=== PATIENT | female | born 1990 | race Caucasian/White ===

== ENCOUNTER 2023-05-08 07:44 | Inpatient (IN) ==
[2023-05-08] MEDS ORDERED: OXYTOCIN 30 UNITS/500 ML BAG IV PRN ×3 (07:54→23:40)
[2023-05-08] MEDS ORDERED: LIDOCAINE 1% LOCAL 20 ML VIAL INFIL PRN (07:54)
[2023-05-08] MEDS ORDERED: VANCOMYCIN HCL 1,000 MG in SODIUM CHLORIDE 0.9% 250 ML IV STA (07:59)
[2023-05-08 08:35] LABS: Hemoglobin 11.9 g/dl (12.0-16.0); Mean Corpuscular Hemoglobin 28.3 pg (25.0-34.0); Mean Corpuscular Volume 83.1 fL (80.0-100.0); Mean Platelet Volume 10.8 fL (9.4-12.4); Platelet Count 194 K/uL (130-400); RDW Coefficient of Variation 12.9 % (11.5-14.5); RDW Standard Deviation 38.7 fL (36.4-46.3); Red Blood Count 4.21 M/uL (4.20-5.40); White Blood Count 7.59 K/ul (4.8-10.8)
[2023-05-08] MEDS ORDERED: ceFAZolin 2000MG 2,000 MG/15 ML SYR IV STA (08:36)
[2023-05-08] MEDS: LACTATED RINGER'S 1,000 ML IV PRN ×4 (09:17→22:10)
[2023-05-08] MEDS ORDERED: fentaNYL citrate PF 100 MCG/2 ML VIAL ONE (12:02)
[2023-05-08] MEDS ORDERED: SODIUM CHLORIDE 0.9% PF INJ 10 ML VIAL ONE (12:03)
[2023-05-08] MEDS ORDERED: BUPIVACAINE 0.25% PF 30 ML VIAL ONE (12:03)
[2023-05-08] MEDS ORDERED: LIDOCAINE 2%/EPINEPHRINE 1:200,000 20 ML PF ONE (12:03)
[2023-05-08] MEDS ORDERED: ePHEDrine sulfate 50 MG/ML AMP ONE (12:03)
[2023-05-08] MEDS ORDERED: fentaNYL 2MCG/ML ROPIVACAINE 1.25MG/ML 100 ML BAG EPI ONE (12:04)
[2023-05-08] MEDS ORDERED: BUPIVACAINE 0.25% PF 30 ML VIAL EPI PRN (12:26)
[2023-05-08] MEDS ORDERED: ONDANSETRON INJ 2 MG/ML 2 ML VIAL IV PRN (12:26)
[2023-05-08] MEDS ORDERED: SODIUM CHLORIDE 0.9% PF INJ 10 ML VIAL EPI STA (12:26)
[2023-05-08] MEDS ORDERED: ROPIVACAINE 0.5% PF 5 MG/ML 20 ML VIAL EPI PRN (12:26)
[2023-05-08] MEDS ORDERED: fentaNYL citrate PF 100 MCG/2 ML VIAL EPI PRN (12:26)
[2023-05-08] MEDS ORDERED: NALOXONE HCL 1 MG in SODIUM CHLORIDE 0.9% 1000ML 1,000 ML IV PRN (12:26)
[2023-05-08] MEDS ORDERED: LIDOCAINE 2%/EPINEPHRINE 1:200,000 20 ML PF EPI STA (12:26)
[2023-05-08] MEDS ORDERED: NALBUPHINE HCL INJ 10 MG/ML AMP IV PRN (12:26)
[2023-05-08] MEDS ORDERED: BUPIVACAINE 0.25% PF 30 ML VIAL EPI STA (12:26)
[2023-05-08] MEDS ORDERED: fentaNYL 2MCG/ML ROPIVACAINE 1.25MG/ML 100 ML BAG EPI PRN (12:26)
[2023-05-08] MEDS ORDERED: LIDOCAINE 2% MPF LOCAL 5 ML VIAL EPI PRN (12:26)
[2023-05-08] MEDS ORDERED: diphenhydrAMINE 50 MG/ML VIAL IV PRN (12:26)
[2023-05-08] MEDS ORDERED: SODIUM CHLORIDE 0.9% PF INJ 10 ML VIAL EPI PRN (12:26)
[2023-05-08] MEDS ORDERED: ePHEDrine sulfate 50 MG/ML AMP IV PRN (12:26)
[2023-05-08] MEDS ORDERED: fentaNYL citrate PF 100 MCG/2 ML VIAL EPI STA (12:26)
[2023-05-08] MEDS ORDERED: NALOXONE HCL 0.4 MG/1 ML VIAL/CARP IV PRN (12:26)
--- NOTE | 2023-05-08 12:28 | Anesthesiology Consultation ---
Date of Service May 08, 2023 Assessment & Plan Chart Review Chart Review: Patient NOT seen in Pre Admission Testing and Acceptable Risk for Labor Epidural Consults Requested none ASA ASA2 Proposed Anesthesia Anesthesia Type: Labor Epidural Risk / Benefits Reviewed With: PT / POA / Parent / Guardian, Accepts Plan and Informed Consent Obtained History Height/Weight Height: 5 ft 6 in Weight: 94.801 kg Allergies Allergy/AdvReac Type Severity Reaction Status Date / Time Penicillins Allergy swelling Verified 05/07/23 09:48 Medications Home Medications Medication Instructions Recorded Confirmed Last Taken prenat.vits,nikki,set-[id number]-[id number] 1 tab PO DAILY 09/25/22 05/07/23 Unknown breast pump #1 ea 04/23/23 05/07/23 Unknown Active Medications Generic Name Dose Route Start Last Admin Trade Name Freq PRN Reason Stop Dose Admin Lactated Ringer's 1,000 mls @ 125 mls/hr 05/08/23 07:54 05/08/23 09:17 Lr IV 05/10/23 07:53 125 mls/hr .Q8H PRN Administration L&D Protocol Protocol Oxytocin 30 units in 500 mls @ 4 mls/hr 05/08/23 08:35 05/08/23 09:50 Pitocin IV 05/10/23 08:34 0.24 units/hr .Q24H PRN 4 mls/hr Labor Induction/Augmentation Titration Protocol 0.24 UNITS/HR Past Medical History Medical History External hemorrhoids Ulcer Urinary tract infection Varicella vaccination Exercise / Class Metabolic Activity II 4-5 Yardwork/Stairs/Walk up hill Past Family History Family History Aunt Breast cancer Denies family history of Ovarian cancer Prostate cancer Myocardial infarction Colorectal cancer Uterine cancer Past Surgical History Surgical History H/O wisdom tooth extraction History of lumpectomy of right breast 2016, benign Past Anesthesia History No Hx of Anesthesia Complications and No Family Hx of Anesthesia Complications History of PONV No Hx of PONV and No Hx of Motion Sickness Social History Smoking Status: Never smoker Do You Dip or Chew Tobacco: No Hx Alcohol Use: No Hx Substance Use: No Physical Exam Vital Signs Last Vital Signs Temp 37.2 C 05/08/23 08:02 Pulse 65 05/08/23 12:24 Resp 20 05/08/23 10:29 BP 135/73 05/08/23 12:24 ENMT Mouth: no dentition abnormality Thyromental Distance: > or= 3.5 Finger Breadths Mallampati Class: II Neck normal visual inspection Respiratory normal respiratory effort Auscultation: lungs clear to auscultation bilaterally Cardiovascular Rate/Rhythm: regular rate and regular rhythm Psychiatric Orientation: alert Testing Laboratory Results 05/08/23 08:08
[2023-05-08] MEDS ORDERED: ceFAZolin 1000MG 1,000 MG/7.5 ML SYR IV PRN (15:29)
--- NOTE | 2023-05-08 16:51 | History & Physical Report ---
Date of Service May 08, 2023 Assessment & Plan (1) with 39 completed weeks gestation: (2) GBS (group B Streptococcus carrier), +RV culture, currently : Plan Will admit patient to L&D for IOL VSS FHT category 1 GBS positive; will treat with Ancef due to Hx of Penicillin allergy Induction with Pitocin Epidural prn Admission and Anticipated Discharge Date Admission Date: May 08, 2023 History of Present Illness Chief Complaint: Induction of Labor Primary Care Provider: Christina Corral MD Anahi is a 33 y/o female G1 currently at IUP 39 5/7 WGA with an DEONNA 05/10/2023 as determined by certain LMP is for IOLdue tp dilated umbilical vein. Her was without complications. Refers good movement Denies contractions Denies fluid loss Denies bloody show External FHT and external uterine monitors used * Category 1 tracing * Moderate FHT variability. Had regular appointments since her first trimester. Allergies Allergy/AdvReac Type Severity Reaction Status Date / Time Penicillins Allergy swelling Verified 05/07/23 09:48 Home Medications Medication Instructions Recorded Confirmed Type prenat.vits,nikki,psh-moso-uccrn 1 tab PO DAILY 09/25/22 05/08/23 History breast pump #1 ea 04/23/23 05/07/23 Rx Patient History Medical History (Updated 05/08/23 @ 17:22 by Kacie Wade MD) External hemorrhoids Ulcer Urinary tract infection Varicella vaccination Velamentous insertion of umbilical cord Surgical History H/O wisdom tooth extraction History of lumpectomy of right breast 2016, benign Family History Aunt Breast cancer Denies family history of Ovarian cancer Prostate cancer Myocardial infarction Colorectal cancer Uterine cancer Social History (Updated 05/08/23 @ 08:02 by Bisi Sullivan, RN) Smoking Status: Never smoker Second Hand Exposure: No; Do You Dip or Chew Tobacco: No; Hx Alcohol Use: No Hx Substance Use: No Preferred Language: Divehi Communication Ability: Effective Human Resources Specialist Required: No Beliefs That Will Affect Care: None marital status: marital status details: Lito Solorzano (32) [phone] Current Living Situation: Spouse Current Living Situation Comment: lives with spouse, 2 dogs current occupational status: employed 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 Denies shortness of breath or respiratory difficulty. no chest pain and no palpitations no dysuria no headache(s) Physical Exam Physical Exam: General: Alert, oriented x3. Afebrile. No acute distress. Eyes: Pupils equal and reactive to light bilaterally. Extraocular movement intact bilaterally. Cardiac: Regular rate and rhythm, no murmurs/rubs/gallops. Respiratory: Clear to auscultation bilaterally a/p, no wheezes/rales/rhonchi. No increased work of breathing. Symmetrical chest rise. No respiratory distress. Abdomen: Gravid; FHR 130-135 bpm; Position: Cephalic Pelvic: Dilation 2cm; Effacement 50%; Station -[address] Manuel Lower Extremities: No lower extremity edema or swelling. No deep calf pain. H kennedy's negative bilaterally Results & Data Vital Signs (Past 12 Hours) Vital Signs Temp Pulse Resp BP Pulse Ox 05/08/23 08:02 37.2 C 20 05/08/23 16:46 73 95 05/08/23 16:47 74 94 05/08/23 16:41 77 96 05/08/23 16:40 74 94 05/08/23 16:36 81 95 05/08/23 16:35 65 20 128/67 05/08/23 16:31 72 95 05/08/23 16:26 70 95 05/08/23 16:21 97 05/08/23 16:21 72 05/08/23 16:21 67 130/70 05/08/23 16:16 80 95 05/08/23 16:11 73 96 05/08/23 16:06 63 95 05/08/23 16:05 71 117/66 08/03/23 16:01 73 95 05/08/23 15:56 73 96 05/08/23 15:51 79 96 05/08/23 15:50 64 113/65 05/08/23 15:49 72 94 05/08/23 15:46 75 95 05/08/23 15:41 74 95 05/08/23 15:36 73 96 05/08/23 15:35 74 20 136/65 05/08/23 15:31 78 96 05/08/23 15:26 75 96 05/08/23 15:21 75 97 05/08/23 15:19 37.1 C 80 20 123/66 05/08/23 15:16 71 97 05/08/23 15:11 84 95 05/08/23 15:06 89 96 05/08/23 15:05 73 121/84 05/08/23 15:01 80 96 05/08/23 14:56 78 98 05/08/23 14:51 83 97 05/08/23 14:49 72 05/08/23 14:49 73 133/71 94 05/08/23 14:46 76 96 05/08/23 14:41 69 96 05/08/23 14:36 97 05/08/23 14:36 70 05/08/23 14:36 71 135/73 05/08/23 14:31 75 97 05/08/23 14:26 71 97 05/08/23 14:21 96 05/08/23 14:21 82 05/08/23 14:21 75 122/68 05/08/23 14:16 83 96 05/08/23 14:11 71 97 05/08/23 14:06 76 97 05/08/23 14:02 75 128/61 05/08/23 14:01 80 96 05/08/23 13:57 78 140/66 05/08/23 13:56 81 96 05/08/23 13:51 79 96 05/08/23 13:52 79 16 130/61 05/08/23 13:47 77 136/63 05/08/23 13:46 76 97 05/08/23 13:43 74 125/57 L 05/08/23 13:41 66 96 05/08/23 13:38 67 120/56 L 05/08/23 13:36 72 97 05/08/23 13:33 65 130/59 L 05/08/23 13:31 73 96 05/08/23 13:28 76 20 127/64 05/08/23 13:26 70 97 05/08/23 13:23 67 134/67 05/08/23 13:21 68 97 05/08/23 13:18 70 120/67 05/08/23 13:16 69 96 05/08/23 13:11 73 96 05/08/23 13:12 67 18 131/77 05/08/23 13:07 67 18 128/60 05/08/23 13:06 71 97 05/08/23 13:01 96 05/08/23 13:01 73 05/08/23 13:01 69 18 127/62 05/08/23 12:59 69 18 137/66 05/08/23 12:56 68 97 05/08/23 12:57 68 18 125/65 05/08/23 12:55 77 18 133/62 05/08/23 12:52 73 134/61 05/08/23 12:51 98 05/08/23 12:51 78 05/08/23 12:51 73 18 131/61 05/08/23 12:48 73 140/63 05/08/23 12:46 80 97 05/08/23 12:47 83 18 128/64 05/08/23 12:45 80 18 138/65 05/08/23 12:43 71 18 134/66 05/08/23 12:41 97 05/08/23 12:41 74 05/08/23 12:42 73 148/76 H 05/08/23 12:41 86 148/69 H 05/08/23 12:39 70 142/82 H 05/08/23 12:36 77 100 05/08/23 12:31 87 98 05/08/23 12:24 65 135/73 05/08/23 11:39 72 141/85 H 05/08/23 10:29 80 20 132/82 05/08/23 09:18 86 18 135/80 05/08/23 07:59 78 145/86 H Laboratory Results OB Labs: Blood Type A Positive 10/10/22 Antibody Screen NEGATIVE 10/10/22 Hemoglobin 11.9 g/dl (12.0-16.0) L 05/08/23 Hematocrit 35.0 % (37.0-47.0) L 05/08/23 Mean Corpuscular Volume 83.1 fL (80.0-100.0) 05/08/23 Platelet Count 194 K/uL (130-400) 05/08/23 Rubella IgG Antibody Immune (Immune) 10/10/22 Rapid Plasma Reagin Nonreactive (Nonreactive) 10/10/22 Hepatitis B Surface Antigen. NON-REACTIVE (NON-REACTIVE) 10/10/22 Hepatitis C Antibody (EIA) NON-REACTIVE (NON-REACTIVE) 10/10/22 HIV (1&2) Ag and Ab Confirmation NON-REACTIVE (NON-REACTIVE) 10/10/22 Glucose 1 Hour 50 gm Load 164 mg/dl (70-130) H 02/14/23 Maternal Serum Alpha Fetoprotein 31.0 ng/mL 12/02/22 OB Optional Labs: Chlamydia trachomatis RNA Not Detected (NotDetected) 10/10/22 Neisseria gonorrhoeae RNA Not Detected (NotDetected) 10/10/22 Thyroid Stimulating Hormone (TSH) 2.350 uIu/ml (0.300-4.500) 06/13/22 Alpha Fetoprotein Triple Screen SEE NOTE 12/02/22 Other: * GBS positive Supervising Physician Co-Signing Physician Notes Patient evaluated with the resident and agree with the above findings and plan Resident Activity Tracking Resident Involvement: Resident Care Provided Care Provided: OB Delivery
[2023-05-08] MEDS ORDERED: VANCOMYCIN HCL 1,000 MG in SODIUM CHLORIDE 0.9% 250 ML IV PRN (18:54)
[2023-05-08] MEDS ORDERED: NURSING L&D Epidural Breakthrough Pain Update ONE (20:53)
[2023-05-08] MEDS ORDERED: BENZOCAINE 20% SPRY 85 APPLN/85 GM CAN EXT PRN (23:40)
[2023-05-08] MEDS ORDERED: ACETAMINOPHEN 325 MG TAB PO PRN (23:40)
[2023-05-08] MEDS ORDERED: HYDROCORTISONE ACETATE 25 MG SUPP PR PRN (23:40)
[2023-05-08] MEDS ORDERED: bisacodyL 10 MG SUPP PR PRN (23:40)
[2023-05-08] MEDS ORDERED: DIPHTHERIA/TETANUS/PERTUSSIS Vaccine (Tdap, Age 7+yrs) 0.5mL SYR/VL IM ONE (23:40)
[2023-05-09] MEDS: IBUPROFEN 600 MG TAB PO PRN ×5 (00:48→20:27)
--- NOTE | 2023-05-09 06:57 | Obstetrical Progress Note ---
Date of Service <Kacie Wade MD - Last Filed: 05/09/23 07:32> May 09, 2023 Assessment & Plan <Kacie Wade MD - Last Filed: 05/09/23 07:32> (1) Spontaneous vaginal delivery: Patient with the above mentioned history and findings was evaluated at bedside and found awake, alert, oriented in all spheres, afebrile, and in no acute distress. Overall, patient is doing well clinically. Therefore, will encourage ambulation as tolerated and will resume regular diet. Will continue monitoring pain levels and management with Motrin PRN. Patient is encouraged to breastfeed. Will continue care. All questions were answered. <Marcellus Manuel MD - Last Filed: 05/09/23 07:54> (1) Spontaneous vaginal delivery: Subjective <Kacie Wade MD - Last Filed: 05/09/23 07:32> Anahi is a 33 y/o female who is now PPD # 1 following at 39 5/7 weeks after IOL due to dilated umbilical cord. Reports feeling well overall this morning. Refers mild abdominal cramping & 4/10 pain well managed on analgesics. Voiding spontaneously. Tolerating meals overnight and able to ambulate some. She has passed gas but has not had a bowel movement yet. Some persistent lochia with some improvement this morning. . Her blood type is A positive with last Hb at 11.9. She denies chest pain, SOB, or symptoms of anemia such as palpitations, lightheadedness, fatigue, headaches, or any other symptom. She is GBS positive treated in labor and rubella immune. Constitutional: no fever, no chills or no sweats Denies shortness of breath or difficulty breathing Cardiovascular: no chest pain or no palpitations Breast: no breast pain Genitourinary (female): no dysuria Neurologic: no headache(s) Denies changes in vision Physical Exam <Kacie Wade MD - Last Filed: 05/09/23 07:32> General: Alert. Oriented to person, time, and place. Afebrile. No acute distress. Eyes: pupils equal and reactive to light bilaterally, extraocular movements intact. Cardiac: Regular rate and rhythm, no murmurs/rubs/gallops. Respiratory: Clear to auscultation bilaterally a/p, no wheezes/rales/rhonchi. No increased work of breathing. Symmetrical chest rise. No respiratory distress. Abdomen: Soft, nontender, nondistended. Bowel sounds present. Uterus: Uterine fundus firm, moderately tender, and palpable at the level of the umbilicus. Lower Extremities: No lower extremity edema or swelling. No deep calf pain. Martell's negative bilaterally. Psych: Euthymic affect. Mood and affect congruence. Regular speech rate and content. Results & Data <Kacie Wade MD - Last Filed: 05/09/23 07:32> Vital Signs (Past 12 Hours) Vital Signs Temp Pulse Pulse Resp BP BP Pulse Ox 05/09/23 02:20 36.7 C 69 22 137/73 99 05/09/23 02:20 05/09/23 01:35 36.9 C 18 05/09/23 01:05 18 05/09/23 00:35 18 05/09/23 00:20 18 05/09/23 00:05 18 05/08/23 23:50 36.8 C 18 05/08/23 23:35 18 05/09/23 01:35 73 128/62 05/09/23 01:20 80 130/60 05/09/23 01:05 90 129/64 05/09/23 00:49 76 136/63 05/09/23 00:34 89 130/61 05/09/23 00:19 80 141/69 H 05/09/23 00:04 88 135/68 05/08/23 23:50 90 143/67 H 05/08/23 23:00 20 05/08/23 23:00 20 05/08/23 22:30 20 05/08/23 22:30 20 05/08/23 23:35 84 145/68 H 05/08/23 23:20 98 H 149/72 H 05/08/23 23:06 92 H 97 05/08/23 23:05 148 H 145/70 H 05/08/23 23:03 107 H 87 L 05/08/23 23:01 105 H 97 05/08/23 22:56 100 H 96 05/08/23 22:52 87 93 05/08/23 22:51 90 95 05/08/23 22:46 112 H 96 05/08/23 22:41 110 H 97 05/08/23 22:36 94 08/03/23 22:36 87 05/08/23 22:36 103 H 93 05/08/23 22:35 85 146/92 H 05/08/23 22:31 80 96 05/08/23 22:26 82 96 05/08/23 22:21 102 H 97 05/08/23 22:20 84 152/79 H 05/08/23 22:16 79 97 05/08/23 22:11 108 H 97 05/08/23 22:06 98 05/08/23 22:06 115 H 05/08/23 22:06 93 H 166/85 H 05/08/23 22:01 92 H 99 05/08/23 21:56 81 99 05/08/23 21:51 82 99 05/08/23 21:50 84 154/86 H 05/08/23 21:46 89 97 05/08/23 21:41 105 H 96 05/08/23 21:36 93 H 142/90 H 99 05/08/23 21:31 81 98 05/08/23 21:26 84 97 05/08/23 21:21 85 97 05/08/23 21:20 79 94 05/08/23 21:19 74 139/80 05/08/23 21:16 88 95 05/08/23 21:00 18 05/08/23 21:00 37.2 C 18 05/08/23 21:11 78 96 05/08/23 21:06 82 143/84 H 97 05/08/23 21:01 88 96 05/08/23 20:56 81 97 05/08/23 20:51 96 05/08/23 20:51 79 05/08/23 20:51 79 156/98 H 05/08/23 20:46 86 97 05/08/23 20:41 94 H 96 05/08/23 20:36 97 05/08/23 20:36 77 05/08/23 20:36 74 144/80 H 05/08/23 20:30 18 05/08/23 20:30 18 05/08/23 20:31 81 96 05/08/23 20:26 71 97 05/08/23 20:21 75 147/79 H 96 05/08/23 20:00 18 05/08/23 20:00 18 05/08/23 20:16 81 97 05/08/23 20:11 61 96 05/08/23 20:06 73 96 05/08/23 20:05 76 138/78 05/08/23 20:01 71 96 05/08/23 19:56 74 96 05/08/23 19:51 81 96 05/08/23 19:50 70 153/104 H 05/08/23 19:46 73 96 05/08/23 19:41 61 95 05/08/23 19:36 69 96 05/08/23 19:30 18 05/08/23 19:30 18 05/08/23 19:35 77 137/62 05/08/23 19:31 62 96 05/08/23 19:26 67 96 05/08/23 19:21 62 96 05/08/23 19:20 67 128/66 05/08/23 19:16 71 96 05/08/23 19:00 18 05/08/23 19:00 37.4 C 18 05/08/23 19:11 70 97 05/08/23 19:06 73 96 05/08/23 19:05 70 140/85 05/08/23 19:01 72 96 05/08/23 18:56 66 97 O2 Del Method 05/09/23 02:20 Room Air 05/09/23 02:20 Room Air 05/09/23 01:35 05/09/23 01:05 05/09/23 00:35 05/09/23 00:20 05/09/23 00:05 05/08/23 23:50 05/08/23 23:35 05/09/23 01:35 05/09/23 01:20 05/09/23 01:05 05/09/23 00:49 05/09/23 00:34 05/09/23 00:19 05/09/23 00:04 05/08/23 23:50 05/08/23 23:00 05/08/23 23:00 05/08/23 22:30 05/08/23 22:30 05/08/23 23:35 05/08/23 23:20 05/08/23 23:06 05/08/23 23:05 05/08/23 23:03 05/08/23 23:01 05/08/23 22:56 05/08/23 22:52 05/08/23 22:51 05/08/23 22:46 05/08/23 22:41 05/08/23 22:36 05/08/23 22:36 05/08/23 22:36 05/08/23 22:35 05/08/23 22:31 05/08/23 22:26 05/08/23 22:21 05/08/23 22:20 05/08/23 22:16 05/08/23 22:11 05/08/23 22:06 05/08/23 22:06 05/08/23 22:06 05/08/23 22:01 05/08/23 21:56 05/08/23 21:51 05/08/23 21:50 05/08/23 21:46 05/08/23 21:41 05/08/23 21:36 05/08/23 21:31 05/08/23 21:26 05/08/23 21:21 05/08/23 21:20 05/08/23 21:19 05/08/23 21:16 05/08/23 21:00 05/08/23 21:00 05/08/23 21:11 05/08/23 21:06 05/08/23 21:01 05/08/23 20:56 05/08/23 20:51 05/08/23 20:51 05/08/23 20:51 05/08/23 20:46 05/08/23 20:41 05/08/23 20:36 05/08/23 20:36 05/08/23 20:36 05/08/23 20:30 05/08/23 20:30 05/08/23 20:31 05/08/23 20:26 05/08/23 20:21 05/08/23 20:00 05/08/23 20:00 05/08/23 20:16 05/08/23 20:11 05/08/23 20:06 05/08/23 20:05 05/08/23 20:01 05/08/23 19:56 05/08/23 19:51 05/08/23 19:50 05/08/23 19:46 05/08/23 19:41 05/08/23 19:36 05/08/23 19:30 05/08/23 19:30 05/08/23 19:35 05/08/23 19:31 05/08/23 19:26 05/08/23 19:21 05/08/23 19:20 05/08/23 19:16 05/08/23 19:00 05/08/23 19:00 05/08/23 19:11 05/08/23 19:06 05/08/23 19:05 05/08/23 19:01 05/08/23 18:56 <Marcellus Manuel MD - Last Filed: 05/09/23 07:54> Co-Signing Physician Notes Patient seen with resident and agree with the above findings and plan. Routine care Resident Activity Tracking <Kacie Wade MD - Last Filed: 05/09/23 07:32> Resident Involvement: Resident Care Provided Care Provided: OB Delivery
--- NOTE | 2023-05-09 08:05 | Delivery Summary ---
Vaginal Delivery Summary Date of Service May 09, 2023 [facility] Vaginal Delivery Charge Procedure Intrapartal events: None Delivery augmentation: rupture of membranes and pitocin Delivery monitor: external FHT and external uterine Route of delivery: Episiotomy description: None Laceration description: Perineal - 2nd Degree Delivery repair: vicryl Estimated blood loss (mL): 300 Anesthesia type: Epidural Narrative: Patient progressed to 10 cm dilated 100% effaced +2 station pushed over an intact perineum with epidural anesthesia and delivered a viable with weight and Apgars pending. Had the delivered in RAMOS position rest of the left transverse. No nuchal cord was noted. Body and shoulders quickly followed. delivered with good tone but without spontaneous cry. Stimulation noticed some grimacing and the cord was doubly clamped and cut. In a taken over to the waiting nursery staff for further evaluation. Cord blood and cord segment obtained. Attention was then turned to delivery of the placenta which delivered intact three-vessel cord with gentle cord traction. On inspection of the perineum vagina and cervix was noted to be second-degree perineal laceration which was repaired with 3-0 Vicryl in traditional crown stitch. Needle sponge and instrument counts were correct at the completion of the case. Both mother and stable in the immediate postdelivery. Labor Stage Duration Labor - Stage 1 Duration: 9.35 Labor - Stage 2 Duration: 1.56 Labor - Stage 3 Duration: 4 Total Length of Labor: 10.98
[2023-05-09] MEDS: PRENATAL VITAMIN 1 TAB PO SCH (08:31)
[2023-05-09] MEDS: FERROUS SULFATE 325 MG TAB PO SCH (08:31)
[2023-05-09] MEDS: DOCUSATE SODIUM 100 MG CAP PO SCH ×2 (08:32→20:28)
--- NOTE | 2023-05-09 11:09 | Anesthesia Procedure Note ---
Date of Service May 09, 2023 Anesthesia Post Epidural Note Vital Signs Vital Signs: Temp Pulse Resp BP Pulse Ox O2 Del Method 36.7 C 69 22 137/73 99 Room Air 05/09/23 02:20 05/09/23 02:20 05/09/23 02:20 05/09/23 02:20 05/09/23 02:20 05/09/23 02:20 Pain Intensity Bilateral Abdomen: Pain Intensity: 6 Perineal: Pain Intensity: 2 Notes Mental Status: alert / awake / arousable and participated in evaluation Patient Amnestic to Procedure: No Nausea / Vomiting: adequately controlled Pain: adequately controlled Airway Patency, RR, SpO2: stable & adequate BP & HR: stable & adequate Hydration State: stable & adequate Neuraxial Anesthesia: was administered and sensory block resolved Anesthetic Complications: no major complications apparent and Pt Satisfied with anesthetic care Epidural: Removed without complications and With tip intact
[2023-05-09] MEDS ORDERED: bisacodyL 5 MG TABEC PO SCH (20:00)
[2023-05-10] MEDS: IBUPROFEN 600 MG TAB PO PRN ×2 (01:57→08:30)
--- NOTE | 2023-05-10 06:46 | Obstetrical Progress Note ---
Date of Service <Kacie Wade MD - Last Filed: 05/10/23 07:51> May 10, 2023 Assessment & Plan <Kacie Wade MD - Last Filed: 05/10/23 07:51> (1) Spontaneous vaginal delivery: Patient with the above mentioned history and findings was evaluated at bedside and found clinically and hemodynamically stable, afebrile, awake, alert, oriented x3, and in no acute distress. Overall she seems stable and is fit to go home today. Discharge instructions were discussed. Her pain will be managed with Tylenol, Advil, Ibuprofen, or Motrin PRN. She is to call to schedule and appointment with her OB for 6 weeks after discharge for her follow up evaluation. All questions were answered. <Chandrika Hayden MD, FACOG - Last Filed: 05/10/23 08:53> (1) Spontaneous vaginal delivery: Subjective <Kacie Wade MD - Last Filed: 05/10/23 07:51> Anahi is a 33 y/o female who is now PPD # 2 following at 39 5/7 weeks after IOL due to dilated umbilical cord. Reports feeling well overall this morning. Refers mild abdominal cramping & 0/10 pain well managed on analgesics. Voiding spontaneously. Tolerating meals overnight and able to ambulate some. She has passed gas but has not had a bowel movement yet. Some persistent lochia with some improvement this morning. . Her blood type is A positive with last Hb at 11.9. She denies chest pain, SOB, or symptoms of anemia such as palpitations, lightheadedness, fatigue, headaches, or any other symptom. She is GBS positive treated in labor and rubella immune. Constitutional: no fever, no chills or no sweats Denies shortness of breath or difficulty breathing Cardiovascular: no chest pain or no palpitations Breast: no breast pain Genitourinary (female): no dysuria Neurologic: no headache(s) Denies changes in vision Physical Exam <Kacie Wade MD - Last Filed: 05/10/23 07:51> General: Alert. Oriented to person, time, and place. Afebrile. No acute distress. Eyes: pupils equal and reactive to light bilaterally, extraocular movements intact. Cardiac: Regular rate and rhythm, no murmurs/rubs/gallops. Respiratory: Clear to auscultation bilaterally a/p, no wheezes/rales/rhonchi. No increased work of breathing. Symmetrical chest rise. No respiratory distress. Abdomen: Soft, nontender, nondistended. Bowel sounds present. Uterus: Uterine fundus firm, non-tender, and palpable below the umbilicus. Lower Extremities: No lower extremity edema or swelling. No deep calf pain. Martell's negative bilaterally. Psych: Euthymic affect. Mood and affect congruence. Regular speech rate and content. Results & Data <Kacie Wade MD - Last Filed: 05/10/23 07:51> Vital Signs (Past 12 Hours) Vital Signs Temp Pulse Resp BP BP Pulse Ox O2 Del Method 05/09/23 23:26 36.8 C 72 20 136/75 98 Room Air 05/09/23 19:58 36.7 C 63 20 136/78 99 Room Air <Chandrika Hayden MD, FACOG - Last Filed: 05/10/23 08:53> Co-Signing Physician Notes Resident Physician Supervision Note: I interviewed and examined the patient. Discussed with Dr. Wade and agree with findings and plan as documented in the note. Any exceptions or clarifications are listed here: Patient had an episode severe abdominal cramping and was found to have urinary retention at 1700 last night. she was able to void 1700cc's of urine after nursing assistance. the post void residual was 1400. She voided again spontaneously for a large amount of urine and the post void residual was then 700cc. she was straight cathed at that point. She was then able to void spontaneously again at midnight with a 200cc residual. This morning she is pain free and no longer having issues with urination. She will be discharged but instructed to call if the severe cramping re-occurs or has not been able to void for over 8 hours. Documented By: Chandrika Hayden MD, FACOG Resident Activity Tracking <Kacie Wade MD - Last Filed: 05/10/23 07:51> Resident Involvement: Resident Care Provided Care Provided: OB Delivery
[2023-05-10] MEDS: PRENATAL VITAMIN 1 TAB PO SCH (08:30)
[2023-05-10] MEDS: FERROUS SULFATE 325 MG TAB PO SCH (08:30)
[2023-05-10] MEDS: DOCUSATE SODIUM 100 MG CAP PO SCH (08:30)
== END 2023-05-10 13:48 | disposition home or self-care (01) | DRG 807 ==
LOC: 4S1 07:44 → 4E2 05-09 02:01

== ENCOUNTER 2025-09-07 11:37 | Inpatient (IN) ==
[2025-09-07] MEDS: ACETAMINOPHEN 500 MG TAB PO PRN (12:38)
[2025-09-07 12:44] LABS: Hematocrit (blood only) 35.5 % (37.0-47.0); Hemoglobin 12.0 g/dL (12.0-16.0); Immature Granulocytes # (auto) 0.03 K/uL (0.01-0.20); Immature Granulocytes % (auto) 0.3 %; Mean Corpuscular Hemoglobin 27.8 pg (25.0-34.0); Mean Corpuscular Volume 82.4 fL (80.0-100.0); Platelet Count 189 K/uL (130-400); RDW Standard Deviation 38.5 fL (36.4-46.3); Red Blood Count 4.31 M/uL (4.20-5.40); White Blood Count 8.88 K/ul (4.8-10.8)
[2025-09-07] MEDS ORDERED: LIDOCAINE 1% LOCAL 20 ML VIAL INFIL PRN (12:52)
[2025-09-07] MEDS ORDERED: OXYTOCIN 30 UNITS/NSS 30 UNITS/500 ML BAG IV PRN ×2 (12:52→21:52)
[2025-09-07 13:04] LABS: Alanine Aminotransferase 12 U/L (7-52); Albumin Globulin Ratio 1.2 (0.9-2); Albumin Level 3.5 gm/dl (3.4-5.0); Alkaline Phosphatase 131 U/L (34-104); Anion Gap 6 (3-11); Bilirubin,Total 0.3 mg/dl (0.2-1.0); Blood Urea Nitrogen 11 mg/dl (6-23); Calcium 9.3 mg/dl (8.6-10.3); Carbon Dioxide 24 mmol/L (21-32); Chloride 106 mmol/L (98-107); Globulin 2.9 gm/dl (2.5-4.0); Glucose 77 mg/dl (70-99(Fasting)); Potassium 4.3 mmol/L (3.5-5.1); Sodium 136 mmol/L (136-145); Total Protein 6.4 gm/dl (6.0-8.3)
[2025-09-07 13:13] LABS: Total Protein Urine Random 4.5 mg/dl (0-11.9)
[2025-09-07 13:18] LABS: Protein Creatinine Ratio Urine 0.3 (0-0.2)
--- NOTE | 2025-09-07 13:49 | History & Physical Report ---
Date of Service September 07, 2025 Assessment & Plan (1) Elderly multigravida: Plan: Preeclampsia labs ordered. Will start induction process. Tylenol for headache and ok to eat before IOL. She is not sure if she has headache d/t not eating? Will continue to monitor BPs - on admission, BPs and blood work normal, however pro/creat ratio 0.3, so if BPs become elevated, this will be a preeclampsia diagnosis. If headache does not resolve with eating/tylenol, and/or if BPs become severe range, may need mag- but not indicated at this time. Admission and Anticipated Discharge Date Admission Date: September 07, 2025 History of Present Illness Chief Complaint: elevated BP, headache Primary Care Provider: Christina Corral MD 35yo @ 38 01/10, sent from office for elevated BPs. Also reporting 01/13 headache, has not yet treated. complicated by AMA and GBS+. Allergies Allergy/AdvReac Type Severity Reaction Status Date / Time Penicillins Allergy swelling Verified 09/07/25 10:26 Home Medications Medication Instructions Recorded Confirmed Type PNV no.[id number] PO 01/19/25 09/07/25 History [ Gummies] breast pump #1 ea 08/24/25 09/07/25 Rx Patient History Medical History (Updated 07/07/25 @ 12:42 by Kanwal Upton) History of HPV infection Anxiety Varicella vaccination External hemorrhoids Ulcer Surgical History H/O wisdom tooth extraction History of lumpectomy of right breast Family History Aunt Breast cancer Denies family history of Ovarian cancer Prostate cancer Myocardial infarction Colorectal cancer Uterine cancer Social History (Updated 01/19/25 @ 13:08 by Debra Corbin) Smoking Status: Never smoker Second Hand Exposure: No; Do You Dip or Chew Tobacco: No; Hx Alcohol Use: No Hx Substance Use: No Preferred Language: Polish Communication Ability: Effective 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 Beliefs That Will Affect Care: None marital status: marital status details: Lito Solorzano (33) [phone] Current Living Situation: Spouse and Family Current Living Situation Comment: lives with spouse, child, 2 dogs current occupational status: employed current occupation: [employer] Feels Safe at Home: Yes Diet: regular Assistive Devices: None Review of Systems All systems reviewed & are unremarkable except as noted in HPI & below Physical Exam Physical Exam: FHT Cat 1 [place] irreg SVE cl/50/-3 Constitutional: WD/WN, vitals as above Respiratory: normal respiratory effort, lungs clear to auscultation no respiratory distress Cardiovascular: Rate/Rhythm: regular rate and regular rhythm Gastrointestinal (Abdomen): Inspection/Auscultation: abdomen normal to inspection Percussion/Palpation: abdomen soft; abdomen nontender Gravid. No s/s chorio or abruption. Skin: no rashes, warm and dry Psychiatric: A+Ox3, euthymic affect Results & Data Vital Signs (Past 12 Hours) Vital Signs Pulse BP 09/07/25 12:37 67 132/84 09/07/25 11:50 68 133/81 Coding Level of Care Code None Diagnoses Elderly multigravida O09.529
[2025-09-07] MEDS: LACTATED RINGER'S 1,000 ML IV PRN (14:02)
[2025-09-07] MEDS: OXYTOCIN 30 UNITS/NSS 30 UNITS/500 ML BAG IV PRN (15:00)
--- NOTE | 2025-09-07 15:14 | Labor Progress Brief Note ---
Date of Service September 07, 2025 Subjective Headache has resolved after eating and 1 dose tylenol. [place] bulb placed without difficulty. 35cc, start pit. Given now elevated BPs, PC ratio 0.3, discussed diagnosis of preeclampsia. Discussed that if BPs become persistently in severe range or if symptomatic, then would become severe range and may need magnesium. Assessment & Plan (1) Preeclampsia: Admission and Anticipated Discharge Date Admission Date: September 07, 2025 Results & Data Vital Signs (Past 12 Hours) Vital Signs Temp Pulse Resp BP 09/07/25 14:38 69 09/07/25 14:38 153/88 H 09/07/25 14:23 69 09/07/25 14:23 152/94 H 09/07/25 14:10 36.6 C 19 09/07/25 13:53 76 161/97 H 09/07/25 13:45 73 161/99 H 09/07/25 12:37 67 132/84 09/07/25 11:50 68 133/81 Coding Level of Care Code None Diagnoses Preeclampsia O14.90
[2025-09-07] MEDS ORDERED: ROPIVACAINE 0.5% PF 5 MG/ML 20 ML VIAL EPI PRN (17:06)
[2025-09-07] MEDS ORDERED: NALOXONE HCL 0.4 MG/1 ML VIAL/CARP IV PRN (17:06)
[2025-09-07] MEDS ORDERED: BUPIVACAINE 0.25% PF 30 ML VIAL EPI PRN (17:06)
[2025-09-07] MEDS ORDERED: NALOXONE HCL 1 MG in SODIUM CHLORIDE 0.9% 1,000 ML IV PRN (17:06)
[2025-09-07] MEDS ORDERED: ONDANSETRON INJ 2 MG/ML 2 ML VIAL IV PRN (17:06)
[2025-09-07] MEDS ORDERED: SODIUM CHLORIDE 0.9% PF INJ 10 ML VIAL EPI PRN (17:06)
[2025-09-07] MEDS ORDERED: diphenhydrAMINE 50 MG/ML VIAL IV PRN (17:06)
[2025-09-07] MEDS ORDERED: NALBUPHINE HCL INJ 10 MG/ML AMP IV PRN (17:06)
[2025-09-07] MEDS ORDERED: LIDOCAINE 2% MPF LOCAL 5 ML VIAL EPI PRN (17:06)
--- NOTE | 2025-09-07 17:06 | Anesthesiology Consultation ---
Date of Service September 07, 2025 Assessment & Plan (1) Encounter for pre-operative examination: Chart Review Chart Review: Patient NOT seen in Pre Admission Testing and Acceptable Risk for Labor Epidural Consults Requested none History Height/Weight Height: 5 ft 5 in Weight: 96.88 kg Allergies Allergy/AdvReac Type Severity Reaction Status Date / Time Penicillins Allergy swelling Verified 09/07/25 10:26 Medications Home Medications Medication Instructions Recorded Confirmed Last Taken PNV no.[id number] PO 01/19/25 09/07/25 Unknown [ Gummies] breast pump #1 ea 08/24/25 09/07/25 Unknown famotidine 20 mg tablet (Pepcid) 20 mg PO DAILY 09/07/25 09/07/25 09/07/25 12:00 sertraline 25 mg tablet (Zoloft) 25 mg PO DAILY 09/07/25 09/07/25 09/06/25 20:00 Active Medications Generic Name Dose Route Start Last Admin Trade Name Freq PRN Reason Stop Dose Admin Acetaminophen 1,000 mg 09/07/25 12:11 09/07/25 12:38 Acetaminophen 500 Mg Tab PO 10/07/25 12:10 1,000 mg Q8H PRN Administration Pain Lactated Ringer's 1,000 mls @ 125 mls/hr 09/07/25 12:52 09/07/25 14:02 Lr IV 09/09/25 12:51 125 mls/hr .Q8H PRN Administration L&D Protocol Protocol Oxytocin 30 units in 500 mls @ 7 mls/hr 09/07/25 13:07 09/07/25 16:30 Pitocin 30 Units/Nss IV 09/09/25 13:06 0.42 units/hr .Q24H PRN 7 mls/hr Labor Induction/Augmentation Titration Protocol 0.42 UNITS/HR Past Medical History Medical History History of HPV infection Anxiety Varicella vaccination External hemorrhoids Ulcer Past Family History Family History Aunt Breast cancer maternal Denies family history of Ovarian cancer Prostate cancer Myocardial infarction Colorectal cancer Uterine cancer Past Surgical History Surgical History H/O wisdom tooth extraction History of lumpectomy of right breast 2016, benign Social History Smoking Status: Never smoker Do You Dip or Chew Tobacco: No Hx Alcohol Use: No Hx Substance Use: No Physical Exam Vital Signs Last Vital Signs Temp 97.9 F 09/07/25 14:10 Pulse 64 09/07/25 16:19 Resp 19 09/07/25 14:10 BP 133/70 09/07/25 16:19 Testing Laboratory Results 09/07/25 12:25 09/07/25 12:25
[2025-09-07] MEDS: fentANYL 2 MCG/ML BUPIVacaine 0.125%-NSS 100ML BAG ONE (17:28)
[2025-09-07] MEDS: LIDOCAINE 2%/EPINEPHRINE 1:200,000 20 ML PF ONE (17:29)
[2025-09-07] MEDS: SODIUM CHLORIDE 0.9% PF INJ 10 ML VIAL ONE (17:29)
[2025-09-07] MEDS: BUPIVACAINE 0.25% PF 30 ML VIAL ONE (17:29)
[2025-09-07] MEDS: BUPIVACAINE 0.25% PF 30 ML VIAL EPI STA (17:34)
[2025-09-07] MEDS: LIDOCAINE 2%/EPINEPHRINE 1:200,000 20 ML PF EPI STA (17:35)
[2025-09-07] MEDS: fentANYL 2 MCG/ML BUPIVacaine 0.125%-NSS 100ML BAG EPI PRN (17:36)
[2025-09-07] MEDS: SODIUM CHLORIDE 0.9% PF INJ 10 ML VIAL EPI STA (18:22)
--- NOTE | 2025-09-07 19:31 | Labor Progress Brief Note ---
Date of Service September 07, 2025 Subjective Comfortable with epidural. FHT Cat 1 [place] Q 2 SVE 6/80/-2, AROM clear fluid. Continue labor. Assessment & Plan Admission and Anticipated Discharge Date Admission Date: September 07, 2025 Results & Data Vital Signs (Past 12 Hours) Vital Signs Temp Pulse Resp BP Pulse Ox 09/07/25 19:28 92 09/07/25 19:28 91 H 09/07/25 19:25 72 09/07/25 19:25 137/80 09/07/25 19:24 97 09/07/25 19:24 69 09/07/25 19:19 99 09/07/25 19:19 71 09/07/25 19:14 99 09/07/25 19:14 69 09/07/25 19:14 142/81 H 09/07/25 19:11 37.2 C 18 09/07/25 19:09 98 09/07/25 19:09 67 09/07/25 19:05 72 09/07/25 19:05 135/83 09/07/25 19:04 98 09/07/25 19:04 74 09/07/25 18:59 100 09/07/25 18:59 67 09/07/25 18:55 64 09/07/25 18:55 130/74 09/07/25 18:54 98 09/07/25 18:54 70 09/07/25 18:49 100 09/07/25 18:49 67 09/07/25 18:44 99 09/07/25 18:44 72 09/07/25 18:44 138/74 09/07/25 18:39 99 09/07/25 18:39 65 09/07/25 18:35 92 09/07/25 18:35 79 09/07/25 18:34 94 09/07/25 18:34 78 09/07/25 18:34 138/73 09/07/25 18:29 100 09/07/25 18:29 72 09/07/25 18:24 100 09/07/25 18:24 67 09/07/25 18:24 142/76 H 09/07/25 18:19 100 09/07/25 18:19 72 09/07/25 18:15 85 09/07/25 18:15 145/74 H 09/07/25 18:14 100 09/07/25 18:14 75 09/07/25 18:09 100 09/07/25 18:09 70 09/07/25 18:09 92 09/07/25 18:09 79 09/07/25 18:04 100 09/07/25 18:04 92 H 09/07/25 18:04 157/80 H 09/07/25 17:59 100 09/07/25 17:59 94 H 09/07/25 17:54 100 09/07/25 17:54 87 09/07/25 17:54 122/82 09/07/25 17:49 100 09/07/25 17:49 82 09/07/25 17:48 80 09/07/25 17:48 143/71 H 09/07/25 17:44 100 09/07/25 17:44 87 09/07/25 17:42 78 09/07/25 17:42 144/69 H 09/07/25 17:40 84 09/07/25 17:40 161/79 H 09/07/25 17:39 100 09/07/25 17:39 83 09/07/25 17:38 73 09/07/25 17:38 167/89 H 09/07/25 17:34 100 09/07/25 17:34 66 09/07/25 17:29 100 09/07/25 17:29 77 09/07/25 17:24 100 09/07/25 17:24 86 09/07/25 17:19 100 09/07/25 17:19 77 09/07/25 17:18 92 09/07/25 17:18 75 09/07/25 17:14 100 09/07/25 17:14 68 09/07/25 16:19 64 09/07/25 16:19 133/70 09/07/25 15:32 72 09/07/25 15:32 133/80 09/07/25 14:38 69 09/07/25 14:38 153/88 H 09/07/25 14:23 69 09/07/25 14:23 152/94 H 09/07/25 14:10 36.6 C 19 09/07/25 13:53 76 161/97 H 09/07/25 13:45 73 161/99 H 09/07/25 12:37 67 132/84 09/07/25 11:50 68 133/81 Coding Level of Care Code None
--- NOTE | 2025-09-07 20:57 | Labor Progress Brief Note ---
Date of Service September 07, 2025 Subjective FHT Cat 1 [place] Q 2 Urge to push. Complete dilation, +1 station, will start pushing. Assessment & Plan Admission and Anticipated Discharge Date Admission Date: September 07, 2025 Results & Data Vital Signs (Past 12 Hours) Vital Signs Temp Pulse Resp BP Pulse Ox 09/07/25 20:54 89 L 09/07/25 20:54 116 H 09/07/25 20:49 100 09/07/25 20:49 86 09/07/25 20:46 85 09/07/25 20:46 146/86 H 09/07/25 20:44 100 09/07/25 20:44 69 09/07/25 20:41 93 09/07/25 20:41 69 09/07/25 20:39 100 09/07/25 20:39 68 09/07/25 20:35 91 09/07/25 20:35 77 09/07/25 20:34 96 09/07/25 20:34 79 09/07/25 20:30 65 09/07/25 20:30 148/91 H 09/07/25 20:29 97 09/07/25 20:29 66 09/07/25 20:24 98 09/07/25 20:24 74 09/07/25 20:19 98 09/07/25 20:19 70 09/07/25 20:14 97 09/07/25 20:14 65 09/07/25 20:14 133/80 09/07/25 20:09 98 09/07/25 20:09 67 09/07/25 20:04 98 09/07/25 20:04 66 09/07/25 20:04 65 09/07/25 20:04 138/80 09/07/25 19:59 98 09/07/25 19:59 65 09/07/25 19:57 65 09/07/25 19:57 135/76 09/07/25 19:54 97 09/07/25 19:54 67 09/07/25 19:52 94 09/07/25 19:52 69 09/07/25 19:49 97 09/07/25 19:49 65 09/07/25 19:44 99 09/07/25 19:44 65 09/07/25 19:44 162/91 H 09/07/25 19:39 99 12/03/25 19:39 68 09/07/25 19:35 64 09/07/25 19:35 165/84 H 09/07/25 19:34 97 09/07/25 19:34 68 09/07/25 19:33 93 09/07/25 19:33 68 09/07/25 19:29 98 09/07/25 19:29 74 09/07/25 19:28 92 09/07/25 19:28 91 H 09/07/25 19:25 72 09/07/25 19:25 137/80 09/07/25 19:24 97 09/07/25 19:24 69 09/07/25 19:19 99 09/07/25 19:19 71 09/07/25 19:14 99 09/07/25 19:14 69 09/07/25 19:14 142/81 H 09/07/25 19:11 37.2 C 18 09/07/25 19:11 18 09/07/25 19:11 37.2 C 18 09/07/25 19:09 98 09/07/25 19:09 67 09/07/25 19:05 72 09/07/25 19:05 135/83 09/07/25 19:04 98 09/07/25 19:04 74 09/07/25 18:59 100 09/07/25 18:59 67 09/07/25 18:55 64 09/07/25 18:55 130/74 09/07/25 18:54 98 09/07/25 18:54 70 09/07/25 18:49 100 09/07/25 18:49 67 09/07/25 18:44 99 09/07/25 18:44 72 09/07/25 18:44 138/74 09/07/25 18:39 99 09/07/25 18:39 65 09/07/25 18:35 92 09/07/25 18:35 79 09/07/25 18:34 94 09/07/25 18:34 78 09/07/25 18:34 138/73 09/07/25 18:29 100 09/07/25 18:29 72 09/07/25 18:24 100 09/07/25 18:24 67 09/07/25 18:24 142/76 H 09/07/25 18:19 100 09/07/25 18:19 72 09/07/25 18:15 85 09/07/25 18:15 145/74 H 09/07/25 18:14 100 09/07/25 18:14 75 09/07/25 18:09 100 09/07/25 18:09 70 09/07/25 18:09 92 09/07/25 18:09 79 09/07/25 18:04 100 09/07/25 18:04 92 H 09/07/25 18:04 157/80 H 09/07/25 17:59 100 09/07/25 17:59 94 H 09/07/25 17:54 100 09/07/25 17:54 87 09/07/25 17:54 122/82 09/07/25 17:49 100 09/07/25 17:49 82 09/07/25 17:48 80 09/07/25 17:48 143/71 H 09/07/25 17:44 100 09/07/25 17:44 87 09/07/25 17:42 78 09/07/25 17:42 144/69 H 09/07/25 17:40 84 09/07/25 17:40 161/79 H 09/07/25 17:39 100 09/07/25 17:39 83 09/07/25 17:38 73 09/07/25 17:38 167/89 H 09/07/25 17:34 100 09/07/25 17:34 66 09/07/25 17:29 100 09/07/25 17:29 77 09/07/25 17:24 100 09/07/25 17:24 86 09/07/25 17:19 100 09/07/25 17:19 77 09/07/25 17:18 92 09/07/25 17:18 75 09/07/25 17:14 100 09/07/25 17:14 68 09/07/25 16:19 64 09/07/25 16:19 133/70 09/07/25 15:32 72 09/07/25 15:32 133/80 09/07/25 14:38 69 09/07/25 14:38 153/88 H 09/07/25 14:23 69 09/07/25 14:23 152/94 H 09/07/25 14:10 36.6 C 19 09/07/25 13:53 76 161/97 H 09/07/25 13:45 73 161/99 H 09/07/25 12:37 67 132/84 09/07/25 11:50 68 133/81 Coding Level of Care Code None
--- NOTE | 2025-09-07 21:37 | Delivery Summary ---
Vaginal Delivery Summary Date of Service September 07, 2025 Vaginal Delivery Summary and 3rd Degree LAC Vaginal Delivery Summary: Pre-delivery diagnoses: 35yo @ 38 /, IOL for preeclampsia, AMA, GBS+ Post-delivery diagnoses: same Procedure: spontaneous vaginal delivery, repair of 3rd degree perineal laceration. Surgeon: Denia David DO Complications: none Findings: Viable male . Apgars: 8/9 . Weight pending, please see nursery records Estimated QBL: 258 Description of delivery: The patient progressed to complete with epidural anesthesia. She then began to push. She spontaneously vaginally delivered a viable from the cephalic presentation. The head delivered in DARRELL position. The anterior shoulder delivered, followed by the posterior shoulder, followed by the body. No nuchal. The baby was placed on mother's abdomen and a spontaneous cry was heard. Delayed cord clamping was employed, and the cord was doubly clamped and cut. Cord blood was obtained. The placenta was delivered spontaneously intact with a 3-vessel cord. The uterus and vagina were swept of clots and debris. IV pitocin was given. The uterus became firm. The cervix, vagina, and perineum were inspected. Partial 3rd degree perineal laceration - anterior anal sphincter fascial sheath needed 2 [id number] sutures of 2-0 Chromic, followed by repair of remaining laceration with 3-0 Vicryl. Excellent hemostasis was observed. The mother and baby are recovering in stable and good condition in the room. Sponge, needle and instrument counts were correct x 2. Denia David DO [facility] Vaginal Delivery Charge Vaginal Delivery Codes: 54317 global code for the antepartum, delivery, and post- Delivery Type Details: and 3rd Degree LAC
[2025-09-07] MEDS ORDERED: BENZOCAINE 20% SPRY 85 APPLN/85 GM CAN EXT PRN (21:52)
[2025-09-07] MEDS ORDERED: HYDROCORTISONE ACETATE 25 MG SUPP PR PRN (21:52)
[2025-09-07] MEDS: IBUPROFEN 600 MG TAB PO PRN (22:18)
[2025-09-07] MEDS: ACETAMINOPHEN 325 MG TAB PO PRN (22:19)
[2025-09-07] MEDS ORDERED: SERTRALINE HCL 50 MG TABLET PO SCH (22:30)
[2025-09-07] MEDS: SERTRALINE HCL 50 MG TABLET PO SCH (22:33)
[2025-09-08] MEDS: DIPHTHER/TETAN/PERTUS Vaccine (Tdap, Adol/Adult) 0.5mL IM ONE (01:14)
--- NOTE | 2025-09-08 06:21 | Obstetrical Progress Note ---
Date of Service September 08, 2025 Assessment & Plan (1) Preeclampsia: (2) examination following vaginal delivery: (3) Carrier of group B Streptococcus: (4) Elderly multigravida: Plan 35 y/o ppd #1 s/p . complicated by pre-eclampsia, GBS(+), AMA. Feels well today. BPs continue to be elevated since delivery ; would like to see improvement of BP before home discharge. Continue post- care Encourage ambulation and increase sertraline 25mg to 50mg po daily. Pain controlled with ibuprofen Hgb stable Anticipate home discharge tomorrow, follow up with Dr. David 6 weeks. Admission and Anticipated Discharge Date Admission Date: September 07, 2025 Supervising Physician Co-Signing Physician Notes Resident Physician Supervision Note: I interviewed and examined the patient. Discussed with Dr. De Santiago and agree with findings and plan as documented in the note. Any exceptions or clarifications are listed here: PPD#1 doing well overall, has an increase in anxiety symptoms - will increase zoloft dose to 50mg now, will continue to monitor. Anticipate DC home tomorrow. Documented By: Denia David, DO Subjective 35 y/o ppd #1 s/p . complicated by pre-eclampsia, GSB(+), AMA no issues overnight. feeling anxious and jittery since delivery, was not able to sleep last night, taking sertraline 25mg po daily at home and is asking if it would be possible to maybe increase this dose. Otherwise, she is doing well and has no other concerns to this morning. Ambulation: ambulating normally Voiding: no voiding problems Passing Gas:: Yes Diet Tolerance:: regular diet Lochia:: Small Feeding Type:: breast Current Pain Level: minimal - well-controlled with tylenol/ibuprofen Resting comfortably this AM in NAD. Denies MARTINEZ, CP, SOB, N/V/D, LE pain/swelling. Review of Systems Review of Systems: as above Physical Exam Physical Exam: General: patient resting comfortably, NAD, non-toxic in appearance, A&Ox4, answers questions appropriately. Skin: warm, dry, intact HEENT: NC/AT, anicteric sclera, conjunctiva without injection, moist mucus membranes. Heart: +S1/S2, regular, no m/r/g Lungs: equal air entry bilaterally, no rales/rhonchi/wheezes Abd: +BS, soft, NT/ND, uterine fundus firm at umbilicus Ext: warm, no clubbing/cyanosis or edema Neuro: no focal neurologic deficits, moving all extremities. Results & Data Vital Signs (Past 12 Hours) Vital Signs Temp Pulse Pulse Resp BP BP Pulse Ox 09/08/25 02:45 36.6 C 60 16 143/82 H 97 09/07/25 23:50 36.6 C 61 18 149/82 H 96 09/07/25 23:30 36.8 C 63 18 136/78 97 09/07/25 23:04 97 09/07/25 23:04 63 09/07/25 23:00 63 18 97 09/07/25 23:00 64 09/07/25 23:00 131/69 09/07/25 22:59 97 09/07/25 22:59 63 09/07/25 22:54 97 09/07/25 22:54 64 09/07/25 22:49 98 09/07/25 22:49 61 09/07/25 22:45 60 09/07/25 22:45 133/74 09/07/25 22:44 99 09/07/25 22:44 60 09/07/25 22:39 97 09/07/25 22:39 84 09/07/25 22:35 94 09/07/25 22:35 72 09/07/25 22:34 96 09/07/25 22:34 71 09/07/25 22:30 72 18 94 09/07/25 22:30 75 09/07/25 22:30 148/88 H 09/07/25 22:29 98 09/07/25 22:29 77 09/07/25 22:25 90 09/07/25 22:25 72 09/07/25 22:24 95 09/07/25 22:24 73 09/07/25 22:19 97 09/07/25 22:19 66 09/07/25 22:15 66 09/07/25 22:15 152/87 H 09/07/25 22:14 95 09/07/25 22:14 72 09/07/25 22:13 93 09/07/25 22:13 75 09/07/25 22:09 96 09/07/25 22:09 78 09/07/25 22:07 91 09/07/25 22:07 76 09/07/25 22:04 97 09/07/25 22:04 74 09/07/25 22:01 92 09/07/25 22:01 72 09/07/25 22:00 74 18 97 09/07/25 22:00 68 09/07/25 22:00 140/84 09/07/25 21:59 97 09/07/25 21:59 74 09/07/25 21:56 93 09/07/25 21:56 73 09/07/25 21:54 96 09/07/25 21:54 73 09/07/25 21:49 97 09/07/25 21:49 69 09/07/25 21:45 74 18 141/82 H 09/07/25 21:45 74 09/07/25 21:45 141/82 H 09/07/25 21:44 97 09/07/25 21:44 75 09/07/25 21:39 100 09/07/25 21:39 70 09/07/25 21:34 96 09/07/25 21:34 68 09/07/25 21:34 92 09/07/25 21:34 69 09/07/25 21:30 37.3 C 18 09/07/25 21:30 73 09/07/25 21:30 153/86 H 09/07/25 21:29 96 09/07/25 21:29 74 09/07/25 21:24 97 09/07/25 21:24 75 09/07/25 21:19 97 09/07/25 21:19 79 09/07/25 21:15 85 09/07/25 21:15 146/86 H 09/07/25 21:14 96 09/07/25 21:14 83 09/07/25 21:09 95 09/07/25 21:09 92 H 09/07/25 21:04 95 09/07/25 21:04 107 H 09/07/25 20:59 90 09/07/25 20:59 122 H 09/07/25 20:54 89 L 09/07/25 20:54 116 H 09/07/25 20:49 100 09/07/25 20:49 86 09/07/25 20:46 85 09/07/25 20:46 146/86 H 09/07/25 20:44 100 09/07/25 20:44 69 09/07/25 20:41 93 09/07/25 20:41 69 09/07/25 20:39 100 09/07/25 20:39 68 09/07/25 20:35 91 09/07/25 20:35 77 09/07/25 20:34 96 09/07/25 20:34 79 09/07/25 20:30 65 09/07/25 20:30 148/91 H 09/07/25 20:29 97 09/07/25 20:29 66 09/07/25 20:24 98 09/07/25 20:24 74 09/07/25 20:19 98 09/07/25 20:19 70 09/07/25 20:14 97 09/07/25 20:14 65 09/07/25 20:14 133/80 09/07/25 20:09 98 09/07/25 20:09 67 09/07/25 20:04 98 09/07/25 20:04 66 09/07/25 20:04 65 09/07/25 20:04 138/80 09/07/25 19:59 98 09/07/25 19:59 65 09/07/25 19:57 65 09/07/25 19:57 135/76 09/07/25 19:54 97 09/07/25 19:54 67 09/07/25 19:52 94 09/07/25 19:52 69 09/07/25 19:49 97 09/07/25 19:49 65 09/07/25 19:44 99 09/07/25 19:44 65 09/07/25 19:44 162/91 H 09/07/25 19:39 99 09/07/25 19:39 68 09/07/25 19:35 64 09/07/25 19:35 165/84 H 09/07/25 19:34 97 09/07/25 19:34 68 09/07/25 19:33 93 09/07/25 19:33 68 09/07/25 19:29 98 09/07/25 19:29 74 09/07/25 19:28 92 09/07/25 19:28 91 H 09/07/25 19:25 72 09/07/25 19:25 137/80 09/07/25 19:24 97 09/07/25 19:24 69 09/07/25 19:19 99 09/07/25 19:19 71 09/07/25 19:14 99 09/07/25 19:14 69 09/07/25 19:14 142/81 H 09/07/25 19:11 37.2 C 18 09/07/25 19:11 18 09/07/25 19:11 37.2 C 18 09/07/25 19:09 98 09/07/25 19:09 67 09/07/25 19:05 72 09/07/25 19:05 135/83 09/07/25 19:04 98 09/07/25 19:04 74 09/07/25 18:59 100 09/07/25 18:59 67 09/07/25 18:55 64 09/07/25 18:55 130/74 09/07/25 18:54 98 09/07/25 18:54 70 09/07/25 18:49 100 09/07/25 18:49 67 09/07/25 18:44 99 09/07/25 18:44 72 09/07/25 18:44 138/74 09/07/25 18:39 99 09/07/25 18:39 65 09/07/25 18:35 92 09/07/25 18:35 79 09/07/25 18:34 94 09/07/25 18:34 78 09/07/25 18:34 138/73 09/07/25 18:29 100 09/07/25 18:29 72 09/07/25 18:24 100 09/07/25 18:24 67 09/07/25 18:24 142/76 H 09/07/25 18:19 100 09/07/25 18:19 72 O2 Del Method 09/08/25 02:45 Room Air 09/07/25 23:50 Room Air 09/07/25 23:30 09/07/25 23:04 09/07/25 23:04 09/07/25 23:00 09/07/25 23:00 09/07/25 23:00 09/07/25 22:59 09/07/25 22:59 09/07/25 22:54 09/07/25 22:54 09/07/25 22:49 09/07/25 22:49 09/07/25 22:45 09/07/25 22:45 09/07/25 22:44 09/07/25 22:44 09/07/25 22:39 09/07/25 22:39 09/07/25 22:35 09/07/25 22:35 09/07/25 22:34 09/07/25 22:34 09/07/25 22:30 09/07/25 22:30 09/07/25 22:30 09/07/25 22:29 09/07/25 22:29 09/07/25 22:25 09/07/25 22:25 09/07/25 22:24 09/07/25 22:24 09/07/25 22:19 09/07/25 22:19 09/07/25 22:15 09/07/25 22:15 09/07/25 22:14 09/07/25 22:14 09/07/25 22:13 09/07/25 22:13 09/07/25 22:09 09/07/25 22:09 09/07/25 22:07 09/07/25 22:07 09/07/25 22:04 09/07/25 22:04 09/07/25 22:01 09/07/25 22:01 09/07/25 22:00 09/07/25 22:00 09/07/25 22:00 09/07/25 21:59 09/07/25 21:59 09/07/25 21:56 09/07/25 21:56 09/07/25 21:54 09/07/25 21:54 09/07/25 21:49 09/07/25 21:49 09/07/25 21:45 09/07/25 21:45 09/07/25 21:45 09/07/25 21:44 09/07/25 21:44 09/07/25 21:39 09/07/25 21:39 09/07/25 21:34 09/07/25 21:34 09/07/25 21:34 09/07/25 21:34 09/07/25 21:30 09/07/25 21:30 09/07/25 21:30 09/07/25 21:29 09/07/25 21:29 09/07/25 21:24 09/07/25 21:24 09/07/25 21:19 09/07/25 21:19 09/07/25 21:15 09/07/25 21:15 09/07/25 21:14 09/07/25 21:14 09/07/25 21:09 09/07/25 21:09 09/07/25 21:04 09/07/25 21:04 09/07/25 20:59 09/07/25 20:59 09/07/25 20:54 09/07/25 20:54 09/07/25 20:49 09/07/25 20:49 09/07/25 20:46 09/07/25 20:46 09/07/25 20:44 09/07/25 20:44 09/07/25 20:41 09/07/25 20:41 09/07/25 20:39 09/07/25 20:39 09/07/25 20:35 09/07/25 20:35 09/07/25 20:34 09/07/25 20:34 09/07/25 20:30 09/07/25 20:30 09/07/25 20:29 09/07/25 20:29 09/07/25 20:24 09/07/25 20:24 09/07/25 20:19 09/07/25 20:19 09/07/25 20:14 09/07/25 20:14 09/07/25 20:14 09/07/25 20:09 09/07/25 20:09 09/07/25 20:04 09/07/25 20:04 09/07/25 20:04 09/07/25 20:04 09/07/25 19:59 09/07/25 19:59 09/07/25 19:57 09/07/25 19:57 09/07/25 19:54 09/07/25 19:54 09/07/25 19:52 09/07/25 19:52 09/07/25 19:49 09/07/25 19:49 09/07/25 19:44 09/07/25 19:44 09/07/25 19:44 09/07/25 19:39 09/07/25 19:39 09/07/25 19:35 09/07/25 19:35 09/07/25 19:34 09/07/25 19:34 09/07/25 19:33 09/07/25 19:33 09/07/25 19:29 09/07/25 19:29 09/07/25 19:28 09/07/25 19:28 09/07/25 19:25 09/07/25 19:25 09/07/25 19:24 09/07/25 19:24 09/07/25 19:19 09/07/25 19:19 09/07/25 19:14 09/07/25 19:14 09/07/25 19:14 09/07/25 19:11 09/07/25 19:11 09/07/25 19:11 09/07/25 19:09 09/07/25 19:09 09/07/25 19:05 09/07/25 19:05 09/07/25 19:04 09/07/25 19:04 09/07/25 18:59 09/07/25 18:59 09/07/25 18:55 09/07/25 18:55 09/07/25 18:54 09/07/25 18:54 09/07/25 18:49 09/07/25 18:49 09/07/25 18:44 09/07/25 18:44 09/07/25 18:44 09/07/25 18:39 09/07/25 18:39 09/07/25 18:35 09/07/25 18:35 09/07/25 18:34 09/07/25 18:34 09/07/25 18:34 09/07/25 18:29 09/07/25 18:29 09/07/25 18:24 09/07/25 18:24 09/07/25 18:24 09/07/25 18:19 09/07/25 18:19
[2025-09-08 06:22] LABS: Hematocrit (blood only) 32.3 % (37.0-47.0); Hemoglobin 11.0 g/dL (12.0-16.0); Mean Corpuscular Hemoglobin 27.6 pg (25.0-34.0); Mean Corpuscular Volume 81.0 fL (80.0-100.0); Platelet Count 169 K/uL (130-400); RDW Standard Deviation 37.2 fL (36.4-46.3); Red Blood Count 3.99 M/uL (4.20-5.40); White Blood Count 10.85 K/ul (4.8-10.8)
[2025-09-08 06:50] LABS: Alanine Aminotransferase 9.0 U/L (7-52); Albumin Globulin Ratio 1.3 (0.9-2); Albumin Level 3.1 gm/dl (3.4-5.0); Alkaline Phosphatase 120.0 U/L (34-104); Anion Gap 6.0 (3-11); Bilirubin,Total 0.4 mg/dl (0.2-1.0); Blood Urea Nitrogen 10.0 mg/dl (6-23); Calcium 8.5 mg/dl (8.6-10.3); Carbon Dioxide 23.0 mmol/L (21-32); Chloride 107.0 mmol/L (98-107); Creatinine Clr Calc Pharmacy 179.1 ml/min; Globulin 2.3 gm/dl (2.5-4.0); Glucose 72.0 mg/dl (70-99(Fasting)); Potassium 3.9 mmol/L (3.5-5.1); Sodium 136.0 mmol/L (136-145); Total Protein 5.4 gm/dl (6.0-8.3)
--- NOTE | 2025-09-08 07:42 | Anesthesia Procedure Note ---
Date of Service September 08, 2025 Anesthesia Post Epidural Note Vital Signs Vital Signs: Temp Pulse Resp BP Pulse Ox O2 Del Method 36.6 C 60 16 143/82 H 97 Room Air 09/08/25 02:45 09/08/25 02:45 09/08/25 02:45 09/08/25 02:45 09/08/25 02:45 09/08/25 02:45 Pain Intensity Rectal: Pain Intensity: 3 Abdomen: Pain Intensity: 3 Notes Mental Status: alert / awake / arousable Nausea / Vomiting: adequately controlled Pain: adequately controlled Airway Patency, RR, SpO2: stable & adequate BP & HR: stable & adequate Hydration State: stable & adequate Neuraxial Anesthesia: was administered and sensory block is resolving Anesthetic Complications: no major complications apparent and Pt Satisfied with anesthetic care Epidural: Removed without complications and With tip intact
[2025-09-08] MEDS: PRENATAL VITAMIN 1 TAB PO SCH (08:01)
[2025-09-08] MEDS: DOCUSATE SODIUM 100 MG CAP PO SCH (08:01)
[2025-09-08] MEDS: SERTRALINE HCL 50 MG TABLET PO ONE (08:52)
[2025-09-08] MEDS: FAMOTIDINE 20 MG TAB PO SCH (08:52)
[2025-09-08] MEDS ORDERED: SERTRALINE HCL 50 MG TABLET PO SCH (09:00)
[2025-09-08] MEDS: NIFEdipine EXTENDED REL 30 MG TABCR PO STA ×2 (11:46→18:12)
[2025-09-08 16:25] VITALS: RESP 18
[2025-09-08] MEDS ORDERED: Nursing to Pharmacy Communication SCH (20:07)
[2025-09-08] MEDS: SERTRALINE HCL 50 MG TABLET PO SCH (20:25)
[2025-09-09] MEDS: diphenhydrAMINE Capsule 25 MG CAP PO ONE ×2 (01:33→11:33)
--- NOTE | 2025-09-09 05:43 | Obstetrical Progress Note ---
Date of Service September 09, 2025 Assessment & Plan (1) Preeclampsia: (2) examination following vaginal delivery: (3) Carrier of group B Streptococcus: (4) Elderly multigravida: Plan 35 y/o ppd #2 s/p . complicated by pre-eclampsia, GBS(+), AMA. Feels well today. BPs now well-controlled, on nifedipine 30mg po bid. Will need f/u BP check 1 week after discharge. Continue post- care Encourage ambulation and continue home sertraline 50mg po daily. Pain controlled with ibuprofen Hgb stable Anticipate home discharge today, follow up with Dr. David 6 weeks. Admission and Anticipated Discharge Date Admission Date: September 07, 2025 Supervising Physician Co-Signing Physician Notes Resident Physician Supervision Note: I interviewed and examined the patient. Discussed with Dr. De Santiago and agree with findings and plan as documented in the note. Any exceptions or clarifications are listed here: Continue procardia 30xl PO BID for BP control, check in office 1 week. Zoloft 50mg PO QHS also. Documented By: Piedad Godfrey MD, FACOG, MSCP Subjective 35 y/o ppd #2 s/p . complicated by pre-eclampsia, GSB(+), AMA Ambulation: ambulating normally Voiding: no voiding problems Passing Gas:: Yes Diet Tolerance:: regular diet Lochia:: Small Feeding Type:: breast Current Pain Level: minimal - well-controlled with tylenol/ibuprofen Resting comfortably this AM in NAD. Denies MARTINEZ, CP, SOB, N/V/D, LE pain/swelling. Review of Systems Review of Systems: as above Physical Exam Physical Exam: General: patient resting comfortably, NAD, non-toxic in appearance, A&Ox4, answers questions appropriately. Skin: warm, dry, intact HEENT: NC/AT, anicteric sclera, conjunctiva without injection, moist mucus membranes. Heart: +S1/S2, regular, no m/r/g Lungs: equal air entry bilaterally, no rales/rhonchi/wheezes Abd: +BS, soft, NT/ND, uterine fundus firm at umbilicus Ext: warm, no clubbing/cyanosis or edema Neuro: no focal neurologic deficits, moving all extremities. Results & Data Vital Signs (Past 12 Hours) Vital Signs Temp Pulse Resp BP Pulse Ox O2 Del Method 09/09/25 04:18 36.5 C 69 18 128/77 97 Room Air 09/08/25 23:32 36.7 C 72 18 145/79 H 97 Room Air 09/08/25 18:59 36.9 C 80 18 139/83 96 Room Air
[2025-09-09] MEDS: NIFEdipine EXTENDED REL 30 MG TABCR PO SCH (08:26)
[2025-09-09 09:09] VITALS: PULSE 80; TEMP 97.5; O2SAT 98
[2025-09-09] MEDS ORDERED: BUTALBITAL/ACETAMIN/CAFFEINE TAB PO STA (10:59)
[2025-09-09] MEDS: PROCHLORPERAZINE MALEATE 10 MG TAB PO STA (11:21)
[2025-09-09 11:48] VITALS: BP 138/89
[2025-09-09] MEDS ORDERED: SERTRALINE HCL 50 MG TABLET PO SCH (21:00)
== END 2025-09-09 13:35 | disposition home or self-care (01) | DRG 768 ==
LOC: OPB 11:37 → 4S1 11:40 → 4E2 23:54